=== PATIENT | female | born 1955 | race Caucasian/White ===

== ENCOUNTER 2022-02-21 20:12 | Inpatient (IN) ==
[2022-02-21] MEDS ORDERED: SODIUM CHLORIDE 0.9% 1000ML 500 ML IV ONE (20:38)
[2022-02-21] MEDS ORDERED: MoRPHine SULFATE 2 MG/ML CARP IV STA ×2 (20:43→21:29)
[2022-02-21] MEDS ORDERED: ONDANSETRON INJ 2 MG/ML 2 ML VIAL IV STA (20:43)
--- NOTE | 2022-02-21 20:43 | Emergency Department Note ---
History of Present Illness General Chief complaint: Fall Stated complaint: Fall, Alcohol Intoxication Time Seen by Provider: 02/21/22 20:31 Source: patient, EMS, RN notes reviewed and old records reviewed Mode of arrival: EMS Limitations: no limitations History of Present Illness Maximum Pain Intensity: 8 This patient 66-year-old female who comes in after falling around 6 PM. She said she had that she drank too much alcohol and said that she fell out about 2 or 3 steps. She hurts from her neck downward. She says it hurts when she moves denies any chest pain or shortness of breath. Denies that she has any loss of consciousness. She admits to drinking alcohol. She does drink frequently. Denies abdominal pain no focal numbness weakness she has visible swelling of the left ankle. Says she was drinking socially denies that she was trying to hurt herself or took any other ingestions. Is a diabetic but says her blood sugars have been running fine lately Home Medications Medication Instructions Recorded Confirmed Type ginkgo biloba leaf extract 60 mg 60 mg PO DAILY #60 tab 06/22/19 02/21/22 Rx tablet milk thistle 175 mg tablet 175 mg PO DAILY #60 tab 06/22/19 02/21/22 Rx multivitamin with minerals 1 tab PO DAILY #180 tab 06/22/19 02/21/22 Rx (Hair,Skin and Nails) lancets 33 gauge (OneTouch Delica #300 ea 06/28/19 02/21/22 Rx Lancets) blood [facility] 01/27/21 01/12/22 Rx Verio test strips) fluoxetine 20 mg tablet 20 mg PO BID #180 tab 09/01/21 02/21/22 Rx furosemide 20 mg tablet 20 mg PO DAILY PRN #90 tab 09/19/21 02/21/22 Rx glimepiride 4 mg tablet 8 mg PO DAILY #180 tab 11/10/21 02/21/22 Rx rosuvastatin 40 mg tablet 20 mg PO DAILY #90 tab 11/11/21 02/21/22 Rx semaglutide (Ozempic) 0.5 mg SQ WEEKLY #1.5 ml 11/18/21 02/21/22 Rx albuterol sulfate 90 mcg/actuation See Rx Instructions .ROUTE 12/24/21 02/21/22 Rx aerosol inhaler .COMPLEX #18 g amlodipine 5 mg tablet 5 mg PO DAILY #90 tab 12/31/21 02/21/22 Rx betamethasone dipropionate 0.05 % 1 applic TOPICAL BID PRN #45 g 01/12/22 02/21/22 Rx topical cream lisinopril 40 mg tablet 40 mg PO DAILY #180 tab 01/12/22 02/21/22 Rx metformin 1,000 mg tablet 1,000 mg PO BID #180 tab 01/12/22 02/21/22 Rx latanoprost 0.005 % eye drops 1 drp OPHTHALMIC (EYE) DAILY #2.5 01/15/22 2 Rx ml Allergies Allergy/AdvReac Type Severity Reaction Status Date / Time No Known Drug Allergies Allergy Verified 02/21/22 20:52 Past Med/Surg History Medical History (Updated 02/22/22 @ 02:44 by Alexi Perez MD) Anxiety and depression Arthritis Asthma COPD (chronic obstructive pulmonary disease) Diabetes Diverticulosis Glaucoma Hyperlipidemia Hypertension Surgical History History of appendectomy History of oophorectomy, unilateral unilateral right side Family History Mother Diabetes Kidney disease Kidney stones Hypertension Gallbladder disease Sister Seizures Denies family history of Ovarian cancer Prostate cancer Myocardial infarction Breast cancer Cancer Social History Smoking Status: Never smoker Second Hand Exposure: No; Hx Alcohol Use: Yes Alcohol type: beer Alcohol Intake Frequency: 4 or More x per/Week Alcohol Intake Frequency Comment: 2 beers per day Hx Substance Use: No Preferred Language: [place] Islander Communication Ability: Effective Visual Impairment: Limited Hearing Ability: Normal Ranger Aide Required: No Beliefs That Will Affect Care: None marital status: Current Living Situation: Spouse and Family Current Living Situation Comment: lives w/ spouse, daughter, 2 grandchildren, and son in law current occupational status: retired How many Children do You have: 2 Feels Safe at Home: Yes Childhood Exposure to Second-Hand Smoke: Yes caffeine: Yes during the past year weight has: remained stable Dental Care, Regularly: Yes Physical Activity Frequency: 1-2 Times per Week Seatbelt Use: always Sunscreen Use: Yes Review of Systems A total of 10 systems reviewed and were otherwise negative Physical Exam Vital Signs Vital Signs - 24 hr 02/21/22 20:21 02/21/22 20:53 02/21/22 22:02 Temperature 36.6 C Temperature Source Oral Pulse Rate 81 Pulse Rate [Finger] 78 Respiratory Rate 20 16 Blood Pressure 142/91 H Blood Pressure [Right Arm] 149/78 H Blood Pressure Mean 108 Blood Pressure Mean [Right Arm] 101 Pulse Oximetry 94 96 92 Oxygen Delivery Method Nasal Cannula Nasal Cannula Nasal Cannula Oxygen Flow Rate 2 2 2 Sepsis Recent Fever Within 48 Hours No Sepsis New/Unexplained Change in Mental Status No Sepsis Action Taken by Nursing No Action Required 02/22/22 00:00 Temperature Temperature Source Pulse Rate Pulse Rate [Finger] 83 Respiratory Rate 18 Blood Pressure Blood Pressure [Right Arm] 153/61 H Blood Pressure Mean Blood Pressure Mean [Right Arm] 91 Pulse Oximetry 95 Oxygen Delivery Method Nasal Cannula Oxygen Flow Rate 2 Sepsis Recent Fever Within 48 Hours Sepsis New/Unexplained Change in Mental Status Sepsis Action Taken by Nursing General: Well developed well nourished older female who is in a cervical collar and appears mildly intoxicated but answering questions appropriately in no acute distress, breathing comfortably on room air. Normal speech HEENT: Normal cephalic atraumatic. Pupils are equal round and reactive to light. Extraocular movements are intact. Oropharynx is pink with moist mucous membranes. No swelling of the mouth lips or tongue. Neck: Supple with a midline trachea. No meningeal signs or stiffness, no JVD or bruits. No Stridor. Chest: Clear to auscultation bilaterally. No wheezes or rhonchi. No increased work of breathing. Crepitus or subcutaneous air Heart: Regular rate and rhythm without murmurs or gallops. Abdomen: Soft nontender, nondistended without rebound guarding or rigidity. Extremities: No cyanosis clubbing or edema. No calf tenderness or assymetry. She does have some swelling left ankle and a small abrasion/laceration anteriorly. Spine/Back. Non tender to palpation. No CVA tenderness Skin: Good turgor without rashes. Neurologic exam: Cranial nerves two through 12 are intact. Motor and sensation are intact and symmetrical throughout. Course Administered Medications Discontinued Medications Sodium Chloride (Nss 1000ml) 500 mls @ 999 mls/hr IV .Q31M ONE Stop: 02/21/22 21:08 Last Infusion: 02/21/22 21:33 Dose: 0 mls/hr Documented by: [id number] Admin: 02/21/22 21:01 Dose: 999 mls/hr Documented by: [id number] Ioversol (Optiray 320 100ml) 95 ml IV ONCE ONE Stop: 02/21/22 22:20 Last Admin: 02/21/22 22:19 Dose: 95 ml Documented by: [id number] Morphine Sulfate (Morphine Sulfate 2 Mg/Ml Carp) 2 mg IV NOW STA Stop: 02/21/22 20:44 Last Admin: 02/21/22 21:01 Dose: 2 mg Documented by: [id number] Morphine Sulfate (Morphine Sulfate 2 Mg/Ml Carp) 2 mg IV NOW STA Stop: 02/21/22 21:30 Last Admin: 02/21/22 21:50 Dose: 2 mg Documented by: [id number] Morphine Sulfate (Morphine Sulfate 2 Mg/Ml Carp) 2 mg IV NOW STA Stop: 02/22/22 01:55 Last Admin: 02/22/22 01:58 Dose: 2 mg Documented by: [id number] Ondansetron HCl (Ondansetron Inj 2 Mg/Ml 2 Ml Vial) 4 mg IV NOW STA Stop: 02/21/22 20:44 Last Admin: 02/21/22 21:01 Dose: 4 mg Documented by: [id number] Potassium Chloride (Potassium Chloride Crtab 20 Meq Tabcr) 40 meq PO NOW STA Stop: 02/22/22 01:54 Last Admin: 02/22/22 01:58 Dose: 40 meq Documented by: [id number] Medical Decision Making Differential Diagnosis Traumatic injuries, spinal injuries, internal injuries, pneumothorax, alcohol intoxication, electrolyte or metabolic abnormality, orthopedic injuries, diabetic emergency/urgency Medical Records Attestation: I reviewed the patient's medical records. Home Medications Current Medication List: was personally reviewed by me Laboratory Data Attestation: I reviewed the patient's lab results. Result diagrams: 02/21/22 20:25 02/21/22 20:25 Lab Results 02/21/22 02/21/22 02/21/22 Range/Units 20:25 20:25 20:25 WBC 14.49 H (4.8-10.8) K/uL RBC 4.35 (4.2-5.4) M/uL Hgb 13.3 (12.0-16.0) g/dL Hct 38.9 (37-47) % MCV 89.4 (80-100) fL MCH 30.6 (25-34) pg MCHC 34.2 (32-36) g/dL RDW Std Deviation 48.9 H (36.4-46.3) fL RDW Coeff of Suraj 14.9 H (11.5-14.5) % Plt Count 314 (130-400) K/uL MPV 9.3 (7.4-10.4) fL Immature Gran % (Auto) 0.5 % Neut % (Auto) 66.6 % Lymph % (Auto) 26.8 % [place] % (Auto) 4.8 % Eos % (Auto) 1.2 % Baso % (Auto) 0.1 % Neut # (Auto) 9.63 H (1.4-6.5) K/uL Lymph # (Auto) 3.89 H (1.2-3.4) K/uL [place] # (Auto) 0.70 H (0.11-0.59) K/uL Eos # (Auto) 0.18 (0-0.5) K/uL Baso # (Auto) 0.02 (0-0.2) K/uL Immature Gran # (Auto) 0.07 H (0.00-0.02) K/uL PT 10.6 (9.0-12.0) Seconds INR 1.0 (0.9-1.1) APTT 22.8 (21.0-31.0) Seconds PTT Ratio 0.8 Sodium 129 L (136-145) mmol/L Potassium 3.2 L (3.5-5.1) mmol/L Chloride 90 L (98-107) mmol/L Carbon Dioxide 25 (21-32) mmol/L Anion Gap 14 H (3-11) BUN 6 (6-23) mg/dl Creatinine 0.46 L (0.6-1.2) mg/dl Est Cr Clr Drug Dosing Not Reportable Est GFR ( Amer) 118.5 ml/min Est GFR (Non-Af Amer) 102.2 ml/min BUN/Creatinine Ratio 13.0 (10-20) Glucose 79 (70-99(Fasting)) mg/dl POC Glucose (70-99) mg/dl Calcium 8.9 (8.5-10.1) mg/dl Total Bilirubin 0.5 (0.2-1.0) mg/dl AST 45 H (13-39) U/L ALT 34 (7-52) U/L Alkaline Phosphatase 63 (34-104) U/L Troponin I High Sens (0-14) pg/ml Total Protein 7.7 (6.0-8.3) gm/dl Albumin 4.8 (3.4-5.0) gm/dl Globulin 2.9 (2.5-4.0) gm/dl Albumin/Globulin Ratio 1.7 (0.9-2) TSH (0.300-4.500) uIu/ml Free T4 (0.61-1.60) ng/dl Ethyl Alcohol mg/dL (<10.0) mg/dl SARS-CoV-2, RNA, NAAT (NEGATIVE) 02/21/22 02/21/22 02/21/22 Range/Units 20:25 20:25 20:37 WBC (4.8-10.8) K/uL RBC (4.2-5.4) M/uL Hgb (12.0-16.0) g/dL Hct (37-47) % MCV (80-100) fL MCH (25-34) pg MCHC (32-36) g/dL RDW Std Deviation (36.4-46.3) fL RDW Coeff of Suraj (11.5-14.5) % Plt Count (130-400) K/uL MPV (7.4-10.4) fL Immature Gran % (Auto) % Neut % (Auto) % Lymph % (Auto) % [place] % (Auto) % Eos % (Auto) % Baso % (Auto) % Neut # (Auto) (1.4-6.5) K/uL Lymph # (Auto) (1.2-3.4) K/uL [place] # (Auto) (0.11-0.59) K/uL Eos # (Auto) (0-0.5) K/uL Baso # (Auto) (0-0.2) K/uL Immature Gran # (Auto) (0.00-0.02) K/uL PT (9.0-12.0) Seconds INR (0.9-1.1) APTT (21.0-31.0) Seconds PTT Ratio Sodium (136-145) mmol/L Potassium (3.5-5.1) mmol/L Chloride (98-107) mmol/L Carbon Dioxide (21-32) mmol/L Anion Gap (3-11) BUN (6-23) mg/dl Creatinine (0.6-1.2) mg/dl Est Cr Clr Drug Dosing Est GFR ( Amer) ml/min Est GFR (Non-Af Amer) ml/min BUN/Creatinine Ratio (10-20) Glucose (70-99(Fasting)) mg/dl POC Glucose (70-99) mg/dl Calcium (8.5-10.1) mg/dl Total Bilirubin (0.2-1.0) mg/dl AST (13-39) U/L ALT (7-52) U/L Alkaline Phosphatase (34-104) U/L Troponin I High Sens 7.9 (0-14) pg/ml Total Protein (6.0-8.3) gm/dl Albumin (3.4-5.0) gm/dl Globulin (2.5-4.0) gm/dl Albumin/Globulin Ratio (0.9-2) TSH 4.781 H (0.300-4.500) uIu/ml Free T4 1.14 (0.61-1.60) ng/dl Ethyl Alcohol mg/dL 232.2 H (<10.0) mg/dl SARS-CoV-2, RNA, NAAT (NEGATIVE) 02/21/22 02/21/22 Range/Units 20:42 21:10 WBC (4.8-10.8) K/uL RBC (4.2-5.4) M/uL Hgb (12.0-16.0) g/dL Hct (37-47) % MCV (80-100) fL MCH (25-34) pg MCHC (32-36) g/dL RDW Std Deviation (36.4-46.3) fL RDW Coeff of Suraj (11.5-14.5) % Plt Count (130-400) K/uL MPV (7.4-10.4) fL Immature Gran % (Auto) % Neut % (Auto) % Lymph % (Auto) % [place] % (Auto) % Eos % (Auto) % Baso % (Auto) % Neut # (Auto) (1.4-6.5) K/uL Lymph # (Auto) (1.2-3.4) K/uL [place] # (Auto) (0.11-0.59) K/uL Eos # (Auto) (0-0.5) K/uL Baso # (Auto) (0-0.2) K/uL Immature Gran # (Auto) (0.00-0.02) K/uL PT (9.0-12.0) Seconds INR (0.9-1.1) APTT (21.0-31.0) Seconds PTT Ratio Sodium (136-145) mmol/L Potassium (3.5-5.1) mmol/L Chloride (98-107) mmol/L Carbon Dioxide (21-32) mmol/L Anion Gap (3-11) BUN (6-23) mg/dl Creatinine (0.6-1.2) mg/dl Est Cr Clr Drug Dosing Est GFR ( Amer) ml/min Est GFR (Non-Af Amer) ml/min BUN/Creatinine Ratio (10-20) Glucose (70-99(Fasting)) mg/dl POC Glucose 94 (70-99) mg/dl Calcium (8.5-10.1) mg/dl Total Bilirubin (0.2-1.0) mg/dl AST (13-39) U/L ALT (7-52) U/L Alkaline Phosphatase (34-104) U/L Troponin I High Sens (0-14) pg/ml Total Protein (6.0-8.3) gm/dl Albumin (3.4-5.0) gm/dl Globulin (2.5-4.0) gm/dl Albumin/Globulin Ratio (0.9-2) TSH (0.300-4.500) uIu/ml Free T4 (0.61-1.60) ng/dl Ethyl Alcohol mg/dL (<10.0) mg/dl SARS-CoV-2, RNA, NAAT NEGATIVE (NEGATIVE) Imaging Data Attestation: I personally reviewed and interpreted this imaging study as follows: My Impression: Chest x-rayno acute infiltrate, failure, pneumothorax seen Left ankle x-ray no definite fracture or dislocation seen Radiologist's Impression: STAT Rad-[facility] trauma scans-no acute intracranial traumatic injuries, no cervical spine fractures. No intra-abdominal injuries. No chest injuries with exception of a mildly displaced sternal fracture. Normal aorta. No pericardial effusion no pneumothorax or pulmonary contusion. Please refer to report ECG Data Attestation: I personally reviewed and interpreted this ECG as follows: Indication: + weakness Rate (beats per minute): 82 ECG Intervals/blocks: + Normal QRS, + Normal QT and + Normal MT ECG [place]: + Normal ECG ST segments: + Nonspecific ST abnormalities ECG Findings: no PACs or no PVCs Comparison ECG Date: no prior available Additional Comments: EKG #2normal sinus rhythm at 71. No definite ischemic changes or ectopy, no significant change compared to 1. Nonspecific Segments are unchanged compared to #1. MDM Narrative This patient comes in as described above. She was placed in room B7. She had been drinking heavily and fell. She has multiple complaints. She has stable vital signs. IV access was established she was given morphine 2 mg IV and Zofran 4 mg IV and IV fluid bolus I ordered [facility] trauma scans and x-ray of the left ankle. EKG and blood testing was obtained she was reassessed frequently. Her chest x-ray did not show any pneumothorax. Her trauma scans do not show any definite abnormalities with exception of sternal fracture. EKG does not show any definite ischemic changes. I did a second EKG and there is no change compared to first. Initial high-sensitivity activity troponin was within normal limits which would go against any cardiac contusion or ischemia. She is doing well with exception of pain management she has received a couple doses of morphine. I do think that she needs to be admitted/observed. I discussed case with Dr. Clinton who will see her in the ED. She also asked that I discuss it with Dr. Bruner who is a surgeon he agrees that the patient could stay here as long as the EKG and troponin look okay. I also did talk to the telemetry radiologist about the sternal fracture and it does not appear to be significantly displaced. The patient is happy with this plan and will be admitted/observed for pain management Continuous cardiac monitoring: Orders placed in EMR for continuous cardiac monitoring. Upon my interpretation patient noted to be in normal sinus rhythm with a rate of 78 Impression & Plan Sternal fracture, Fall, Alcohol intoxication, Lab test negative for COVID-19 virus Discharge Plan Visit Data Chief Complaint: Fall Stated Complaint: Fall, Alcohol Intoxication ED Provider: Alexi Perez Discharge Problem: Sternal fracture, Fall, Alcohol intoxication, Lab test negative for COVID-19 virus Patient Disposition: Admitted As Inpatient Discharge Instructions Interventions: ED Discharge Assessment Last Done: 02/22/22 02:20 Discharge Problem: Sternal fracture Qualifiers: Encounter type: initial encounter Sternal location: unspecified Fracture type: closed Qualified Code(s): S22.20XA - Unspecified fracture of sternum, initial encounter for closed fracture Fall Qualifiers: Encounter type: initial encounter Qualified Code(s): W19.XXXA - Unspecified fall, initial encounter Alcohol intoxication Qualifiers: Complication of substance-induced condition: uncomplicated Qualified Code(s): F10.920 - Alcohol use, unspecified with intoxication, uncomplicated
[2022-02-21 20:49] LABS: Basophils # (auto) 0.02 K/uL (0-0.2); Basophils % (auto) 0.1 %; Eosinophils # (auto) 0.18 K/uL (0-0.5); Eosinophils % (auto) 1.2 %; Hematocrit (blood only) 38.9 % (37-47); Hemoglobin 13.3 g/dL (12.0-16.0); Immature Granulocytes # (auto) 0.07 K/uL (0.00-0.02); Immature Granulocytes % (auto) 0.5 %; Lymphocytes # (auto) 3.89 K/uL (1.2-3.4); Lymphocytes % (auto) 26.8 %; Mean Corpuscular Hemoglobin 30.6 pg (25-34); Mean Corpuscular Hgb Conc 34.2 g/dL (32-36); Mean Corpuscular Volume 89.4 fL (80-100); Mean Platelet Volume 9.3 fL (7.4-10.4); Monocytes % (auto) 4.8 %; Neutrophils # (auto) 9.63 K/uL (1.4-6.5); Neutrophils % (auto) 66.6 %; Platelet Count 314 K/uL (130-400); RDW Coefficient of Variation 14.9 % (11.5-14.5); RDW Standard Deviation 48.9 fL (36.4-46.3); Red Blood Count 4.35 M/uL (4.2-5.4); White Blood Count 14.49 K/uL (4.8-10.8)
[2022-02-21 20:55] LABS: Alanine Aminotransferase 34 U/L (7-52); Albumin Globulin Ratio 1.7 (0.9-2); Albumin Level 4.8 gm/dl (3.4-5.0); Alkaline Phosphatase 63 U/L (34-104); Anion Gap 14 (3-11); Aspartate Aminotransferase 45 U/L (13-39); Bilirubin,Total 0.5 mg/dl (0.2-1.0); Blood Urea Nitrogen 6 mg/dl (6-23); Calcium 8.9 mg/dl (8.5-10.1); Carbon Dioxide 25 mmol/L (21-32); Chloride 90 mmol/L (98-107); Est GFR (African American) 118.5 ml/min; Est GFR (Non-African American) 102.2 ml/min; Globulin 2.9 gm/dl (2.5-4.0); Glucose 79 mg/dl (70-99(Fasting)); Potassium 3.2 mmol/L (3.5-5.1); Sodium 129 mmol/L (136-145); Total Protein 7.7 gm/dl (6.0-8.3)
[2022-02-21 21:01] LABS: Partial Thromboplastin Ratio 0.8; Partial Thromboplastin Time 22.8 Seconds (21.0-31.0); Prothrombin Time 10.6 Seconds (9.0-12.0)
[2022-02-21 21:18] LABS: Thyroid Stimulating Hormone 4.781 uIu/ml (0.300-4.500)
[2022-02-21 21:50] LABS: T4 Free Thyroxine 1.14 ng/dl (0.61-1.60)
[2022-02-21] MEDS ORDERED: OPTIRAY 320 100ml IV ONE (22:19)
--- NOTE | 2022-02-22 01:12 | History & Physical Report ---
Date of Service February 22, 2022 Assessment & Plan (1) Sternal fracture: Plan: This is a 66-year-old female with a notable past medical history of type 2 diabetes, hypertension, hyperlipidemia, COPD, anxiety and depression who presented to [facility] following a fall in the setting of EtOH intoxication, subsequently found to have evidence of non-displaced sternal fracture on CT imaging. At time of admission, there is no evidence of PNX, aortic, or pericardial pathology. Sternal Fracture Sustained following a fall down 2-3 steps in the setting of alcohol intoxication CT chest stat rad: "Displaced sternal fracture with surrounding hyperdense hemorrhagic products. No well-defined hematoma." No evidence of pneumothorax, aortopathy, or pericardial pathology Initial troponin negative. ECG x2 without evidence of conduction/repolarization abnormalities Consult general surgery, appreciate expertise on need for repair/monitoring (ED provider spoke w/ on-call GS; monitor ECGs, troponin, no indication to transfer at present) Monitor troponin X 2 Check CXR, ECG in a.m. If any evidence and troponin bump or ECG changes, obtain TTE Monitor on telemetry, pain control as below (2) Fall: Plan: Fall In the setting of appreciable alcohol intoxication history No evidence of loss of consciousness, secondary factors (based on history) that may have precipitated fall otherwise Imaging obtained in the ED did demonstrate: sternal fracture, L rib injuries, degenerative changes in neck w/o FX Topical pain control with lidocaine patches and heat pads Patient noted to be somnolent following morphine administration for pain in ED; also in setting of appreciable [EtOH], will hold off from as needed opiate analgesics for now but can re-add as they kaba off --> Initiate scheduled Tylenol 650 q6h beginning at 0600 following further IVF --> Will give one-time dose of Toradol to aid with diffuse pain now; cautious use in setting of sternal fracture w/ radiologic evidence of hemorrhage above Upon arrival to the floor, patient noted to have right shoulder droop; will obtain dedicated films of the right shoulder to evaluate for pathology (3) Alcohol intoxication: Plan: EtOH intoxication On arrival, patient noted to have serum alcohol level of approximately 240; she endorsed drinking over 10 beers today On a regular basis, patient reports drinking approximately 4 beers/day; will require further history when less somnolent tomorrow Patient denies any history of alcohol withdrawal; however, will initiate AWSS checks for now Scheduled thiamine, folate Alcohol counseling will be required, especially in the setting of this fall (4) COPD (chronic obstructive pulmonary disease): Plan: COPD History noted in PCP notes. Appears well controlled. Albuterol as needed. (5) Anxiety and depression: Plan: Continue fluoxetine (6) Diabetes: Plan: T2DM A1c reported at 8% in December 2021 Hold home medications. Initiate sliding scale 1:30 with carb correction 1:15 Continue ACHS glucose checks (7) Hyperlipidemia: Plan: Noted. Continue rosuvastatin (8) Hypertension: Plan: Noted. Continue lisinopril and amlodipine (9) Hyponatremia: Plan: Hyponatremia Noted in the setting of alcohol use and dry appearance on exam, labs Suspect this is likely hypovolemic in nature in setting of heavy EtOH use today Status post 500 cc bolus in ED. Continue NSS at 100 cc an hour Recheck BMP in AM. If not correcting, can consider adding urine sodium, creatinine (10) Hypokalemia: Plan: Hypokalemia Replete with KCl 40mEq now. Scheduled twice daily, can discontinue when appropriate. Check Mg, replete prn Plan: Code: Full code -- given somnolence following analgesic administration and EtOH level, unable to have extensive conversation regarding code status. As this improves through the morning, clarification will be required. Dispo: MS/T Diet: Cardiac PPX: SCDs, hold from anticoagulation at this time in setting of fracture, fall History of Present Illness Primary Care Provider: Tamera Marques DO This is a 66-year-old female with a notable past medical history of type 2 diabetes, hypertension, hyperlipidemia, COPD, anxiety and depression who presented to [facility] following a fall. Patient says that she was at the bar with her daughter for most of the day, and around 6 PM, she did suffer a fall down 2-3 steps. To the emergency provider, she did endorse that she drank too much. She did not recall hitting her head. She did not lose consciousness. She was transported to the ER due to significant pain. In the ER, patient reported diffuse pain from her neck downward. Primary source of the pain involves her right shoulder and back. She denied any head or chest pain. Endorses chronic shortness of breath which has not worsened. She denies any belly pain. Denies any groin or pelvic pain. She denies any pain in her legs. She denies any sensation distortions in her upper or lower extremities. She denies any double vision. Socially, patient reports living with her , daughter, and grandchildren. She reports feeling happy and safe at home. She denies any recent changes in medications or taking additional medications today. Regarding her alcohol use, she does say that she drinks approximately 4 beers a day; she denies any use of liquor or wine products. She denies any use of tobacco products. She denies any use of recreational drugs. In the ED, patient was found to be hemodynamically stable. Labs were significant for mild leukocytosis to 15, hyponatremia 129, hypokalemia 3.2, hypochloremia 90, TSH 4.8, serum alcohol 232. Head CT and cervical spine CT negative for acute pathology. Chest CT demonstrated displaced sternal fracture with surrounding hemorrhage without evidence of aortic, pericardial, or pneumatic pathology. Ankle x-ray did not show obvious evidence of fracture, but is awaiting read. ECG without overt evidence of repolarization or conduction abnormalities. Admission hs-troponin NORMAL at 7.9. She was given a total of 1L NSS. Morphine and Zofran were also given. ED provider spoke w/ on-call surgeon to review case. Allergies Allergy/AdvReac Type Severity Reaction Status Date / Time No Known Drug Allergies Allergy Verified 02/21/22 20:52 Home Medications Medication Instructions Recorded Confirmed Type ginkgo biloba leaf extract 60 mg 60 mg PO DAILY #60 tab 06/22/19 02/21/22 Rx tablet milk thistle 175 mg tablet 175 mg PO DAILY #60 tab 06/22/19 02/21/22 Rx multivitamin with minerals 1 tab PO DAILY #180 tab 06/22/19 02/21/22 Rx (Hair,Skin and Nails) lancets 33 gauge (PellePharmTouch Delica #300 ea 06/28/19 02/21/22 Rx Lancets) blood sugar diagnostic (Pelle[employer]Touch #300 ea 01/27/21 01/12/22 Rx Verio test strips) fluoxetine 20 mg tablet 20 mg PO BID #180 tab 09/01/21 02/21/22 Rx furosemide 20 mg tablet 20 mg PO DAILY PRN #90 tab 09/19/21 02/21/22 Rx glimepiride 4 mg tablet 8 mg PO DAILY #180 tab 11/10/21 02/21/22 Rx rosuvastatin 40 mg tablet 20 mg PO DAILY #90 tab 11/11/21 02/21/22 Rx semaglutide (Ozempic) 0.5 mg SQ WEEKLY #1.5 ml 11/18/21 02/21/22 Rx albuterol sulfate 90 mcg/actuation See Rx Instructions .ROUTE 12/24/21 02/21/22 Rx aerosol inhaler .COMPLEX #18 g amlodipine 5 mg tablet 5 mg PO DAILY #90 tab 12/31/21 02/21/22 Rx betamethasone dipropionate 0.05 % 1 applic TOPICAL BID PRN #45 g 01/12/22 Rx topical cream lisinopril 40 mg tablet 40 mg PO DAILY #180 tab 01/12/22 02/21/22 Rx metformin 1,000 mg tablet 1,000 mg PO BID #180 tab 01/12/22 02/21/22 Rx latanoprost 0.005 % eye drops 1 drp OPHTHALMIC (EYE) DAILY #2.5 01/15/22 02/21/22 Rx ml Past Med/Surg History Medical History (Updated 02/22/22 @ 02:44 by Alexi Perez MD) Anxiety and depression Arthritis Asthma COPD (chronic obstructive pulmonary disease) Diabetes Diverticulosis Glaucoma Hyperlipidemia Hypertension Surgical History History of appendectomy History of oophorectomy, unilateral unilateral right side Family History Mother Diabetes Kidney disease Kidney stones Hypertension Gallbladder disease Sister Seizures Denies family history of Ovarian cancer Prostate cancer Myocardial infarction Breast cancer Cancer Social History Smoking Status: Never smoker Second Hand Exposure: No; Hx Alcohol Use: Yes Alcohol type: beer Alcohol Intake Frequency: 4 or More x per/Week Alcohol Intake Frequency Comment: 2 beers per day Hx Substance Use: No Preferred Language: Hebrew Communication Ability: Effective Visual Impairment: Limited Hearing Ability: Normal Eligibility Worker Required: No Beliefs That Will Affect Care: None marital status: Current Living Situation: Spouse Current Living Situation Comment: lives w/ spouse, daughter, 2 grandchildren, and son in law current occupational status: retired How many Children do You have: 2 Feels Safe at Home: Yes Childhood Exposure to Second-Hand Smoke: Yes caffeine: Yes during the past year weight has: remained stable Dental Care, Regularly: Yes Physical Activity Frequency: 1-2 Times per Week Seatbelt Use: always Sunscreen Use: Yes Assistive Devices: None Review of Systems Review of Systems: as per HPI Physical Exam Physical Exam: General: 66-year old somnolent female who is alert, oriented, and appears in moderate distress secondary to diffuse pain. HEENT: NCAT. No JVD. - Eyes - Sclera are white, anicteric, and without injection. PERRL. - Mouth - MMM with no tonsillar edema or exudates. R hemitongue with contusion. Cardiac: Normal rate and regular rhythm; S1 and S2 present with holosystolic grade 1/6 murmur best heard at LUSB, LLSB, apex. No diastolic murmurs. Pulmonary: Easy respiratory effort with symmetric expansion of the chest. No use of accessory muscles. Lungs were clear to auscultation bilaterally with no crackles or wheezes. Abdominal: Normoactive bowel sounds. Abdomen was soft, nondistended, and non- tender to palpation. Extremities: Upper and lower extremities are warm and well perfused. MSK/Back: Palpation along the spine does reveal TTP along the cervicothoracic junction. No step-offs. Palpation along the pelvis does not reveal TTP. UE, LE strength 5/5. LE strength 5/5. Sensation in UE, LE grossly in-tact to light touch. Neuro: - Cranial Nerves: II-XII grossly intact. - Motor: UE - Finger, wrist, elbow, and shoulder strength is 5/5 bilaterally. LE - Hip, knee, and ankle strength is 5/5 bilaterally. - Sensation: UE and LE sensation to light touch is grossly intact bilaterally. Results & Data Results & Data ([facility]) Vital Signs (Past 12 Hours) Vital Signs Temp Pulse Pulse Resp BP BP Pulse Ox 02/22/22 00:00 83 18 153/61 H 95 02/21/22 22:02 78 16 149/78 H 92 02/21/22 20:53 96 02/21/22 20:21 36.6 C 81 20 142/91 H 94 Supervising Physician Co-Signing Physician Notes Patient seen and examined, chart reviewed, case discussed with Dr. Flor and I agree with the assessment and plan as above. In brief, patient is a 66yo female presenting after fall down the stairs. Patient with displaced sternal fracture. Remainder of trauma scans negative for internal injury. EKG with NSR, no arrhythmia. Troponin x 1 negative. No concern for pulmonary/cardiac contusion. Patient complaining of full body pain - mostly right arm, left ankle at this time. On exam she is uncomfortable but in NAD, sitting in chair at bedside. Assisted her to the bed without difficulty, although she is quite uncomfortable Skin - bruise left ordonez, small cut left ankle Bruising on tongue, EOMI, No oral/pharyngeal swelling, facial bones stable, no Cortez's sign or Raccoon eyes +cervical spine tenderness as well as tenderness of the trapezius and arm +S1/S2, regular Lungs CTA Abd +BS, soft, NT/ND Ext - no edema Labs and images reviewed Assessment/Plan -Pain control -PT/OT Repeat EKG, troponin Remainder as above Resident Activity Tracking Resident Involvement: Resident Care Provided Care Provided: Adult Hospital Medicine
[2022-02-22 01:48] LABS: Appearance Urine Clear (Clear); Bacteria Urine Automated Negative (Negative); Bilirubin Urine Negative (Negative); Blood Urine 2+ (Negative); Cast Urine Automated 0 /lpf (0-5); Color Urine Yellow; Epithelial Cell Urine Auto 0-5 /lpf (0-5); Glucose Urine UA Negative (Negative); Ketones Urine 1+ (Negative); Leukocyte Esterase Urine Negative (Negative); Nitrite Urine Negative (Negative); Protein Urine Negative (Negative); RBC Urine Automated 0-4 /hpf (0-4); Specific Gravity Urine 1.032 (1.000-1.030); Urobilinogen Urine Negative (Negative)
[2022-02-22] MEDS ORDERED: POTASSIUM CHLORIDE CRTAB 20 MEQ TABCR PO STA (01:53)
[2022-02-22] MEDS ORDERED: MoRPHine SULFATE 2 MG/ML CARP IV STA (01:54)
--- NOTE | 2022-02-22 01:59 | Billing Data ---
Date of Service February 22, 2022 Coding Level of Care Code 80091 Initial Inpt Care Lvl 3
[2022-02-22] MEDS ORDERED: KETOROLAC TROMETHAMINE 10 MG TABLET PO SCH (02:00)
[2022-02-22] MEDS ORDERED: KETOROLAC TROMETHAMINE 10 MG TABLET PO STA (02:00)
[2022-02-22] MEDS ORDERED: ALBUTEROL HFA 8 GM INHALER INH PRN (02:18)
[2022-02-22] MEDS ORDERED: GLUCOSE 10 TABS/TUBE PO PRN (02:18)
[2022-02-22] MEDS ORDERED: GLUCAGON FOR INJ 1 MG VIAL SQ PRN (02:18)
[2022-02-22] MEDS ORDERED: DEXTROSE 50% 50 ML SYRINGE IV PRN (02:18)
[2022-02-22] MEDS ORDERED: GLUCOSE 40% GEL 15 GM TUBE PO PRN (02:18)
[2022-02-22] MEDS ORDERED: CARBOHYDRATES FOR HYPOGLYCEMIA PO PRN (02:18)
[2022-02-22] MEDS ORDERED: SODIUM CHLORIDE 0.9% 1000ML 1,000 ML IV SCH (02:18)
[2022-02-22] MEDS ORDERED: FOLIC ACID 1 MG in SYRINGE 9.8 ML IV ONE (02:45)
[2022-02-22] MEDS ORDERED: FLUOCINONIDE 0.05% CR 15 GM TUBE EXT PRN (02:51)
[2022-02-22] MEDS: ACETAMINOPHEN 325 MG TAB PO SCH ×3 (03:18→17:58)
[2022-02-22 03:41] LABS: Basophils # (auto) 0.01 K/uL (0-0.2); Basophils % (auto) 0.1 %; Hematocrit (blood only) 36.8 % (37-47); Hemoglobin 12.4 g/dL (12.0-16.0); Immature Granulocytes # (auto) 0.04 K/uL (0.00-0.02); Immature Granulocytes % (auto) 0.3 %; Lymphocytes # (auto) 1.48 K/uL (1.2-3.4); Mean Corpuscular Hgb Conc 33.7 g/dL (32-36); Mean Corpuscular Volume 89.1 fL (80-100); Mean Platelet Volume 9.4 fL (7.4-10.4); Monocytes # (auto) 0.68 K/uL (0.11-0.59); Monocytes % (auto) 5.1 %; Neutrophils # (auto) 11.23 K/uL (1.4-6.5); Neutrophils % (auto) 83.5 %; Platelet Count 289 K/uL (130-400); RDW Coefficient of Variation 14.7 % (11.5-14.5); RDW Standard Deviation 48.2 fL (36.4-46.3); Red Blood Count 4.13 M/uL (4.2-5.4); White Blood Count 13.44 K/uL (4.8-10.8)
[2022-02-22 03:47] LABS: Albumin Globulin Ratio 1.7 (0.9-2); Albumin Level 4.4 gm/dl (3.4-5.0); BUN Creatinine Ratio 11.1 (10-20); Bilirubin,Total 0.7 mg/dl (0.2-1.0); Creatinine Clr Calc Pharmacy 138.6 ml/min; Est GFR (African American) 119.3 ml/min; Globulin 2.6 gm/dl (2.5-4.0); Potassium 3.8 mmol/L (3.5-5.1)
[2022-02-22 03:49] LABS: Troponin I High Sensitivity 7.6 pg/ml (0-14)
--- NOTE | 2022-02-22 07:13 | XRay Report ---
RIGHT SHOULDER 3 VIEWS HISTORY: R shoulder pain, numbness COMPARISON: None. FINDINGS: There is no fracture or dislocation. Small linear calcification at the expected location of the distal supraspinatus tendon consistent with a calcific tendinitis. The right clavicle is intact. Moderate AC joint arthrosis. There are mild degenerative changes at the glenohumeral joint. No radio paque foreign bodies. IMPRESSION: 1. No fracture or dislocation within the right shoulder. 2. Degenerative changes as described above. ACT 112: Negative or not required by law. Electronically signed by: Raj Headley M.D. 02/22/2022 7:11 AM
[2022-02-22] MEDS ORDERED: CEROVITE ADV FORMULA TAB PO SCH (07:30)
--- NOTE | 2022-02-22 07:41 | CT Scan Report ---
HEAD CT NONCONTRAST CT DOSE: HISTORY: fall TECHNIQUE: Multiaxial CT images of the head were performed without the use of intravenous contrast. A utomated exposure control was utilized for this study. A dose lowering technique was utilized adheri ng to the principles of ALARA. Comparison: None. Findings: The paranasal sinuses and mastoid air cells are clear. The calvarium and skull base are int act. The ventricles and sulci are within normal limits. There is no mass, hematoma, midline shift, or acute infarct. Posterior scalp swelling. Impression: No acute intracranial abnormality. ACT 112: Negative or not required by law. Electronically signed by: Raj Headley M.D. 02/22/2022 7:39 AM
[2022-02-22] MEDS ORDERED: POTASSIUM CHLORIDE 20 MEQ/15 ML UDC PO SCH (08:00)
--- NOTE | 2022-02-22 08:01 | CT Scan Report ---
CERVICAL SPINE CT CT DOSE: HISTORY: fall TECHNIQUE: Multiaxial CT images of the cervical spine were performed and reformatted in the sagittal and coronal plane without the use of contrast. A dose lowering technique was utilized adhering to e principles of ALARA. COMPARISON: None. FINDINGS: There are bilateral C7 pedicle fractures which extend into the right C7 facet. Mild anterio r wedging at the superior endplate of T1 which may represent an associated compression fracture. Prev ertebral soft tissues are intact. There is soft tissue edema within the left and posterior neck with probable small soft tissue hematomas. There is abnormal density surrounding the C1-C4 thecal sac whic h measures up to 5 mm in thickness resulting in central canal narrowing. This is concerning for an ep idural hematoma. Moderate degenerative changes from C5 through C7. IMPRESSION: 1. Bilateral C7 pedicle fracture which extends into the right C7 facet. This is consistent with an un stable fracture. 2. Abnormal density surrounding the C1-C4 thecal sac which measures up to 5 mm in thickness resulting in central canal narrowing at these levels. This is concerning for an epidural hematoma. Follow-up M MT is recommended for further evaluation. 3. Probable mild superior endplate compression fracture at T1. 4. These findings were discussed with Dr. Mcneal at 8:09 AM on 02/22/2022. ACT 112: Negative or not required by law. Electronically signed by: Raj Headley M.D. 02/22/2022 8:10 AM
--- NOTE | 2022-02-22 08:08 | XRay Report ---
XR chest 1V portable CLINICAL HISTORY: blunt force trauma to chest, cardiopulm eval COMPARISON STUDY: Chest radiograph and chest CT February 21, 2022. FINDINGS: There is no pneumothorax. Blunting of the left costophrenic angle is noted. Mild cardiomega ly is noted. No evidence for pulmonary edema. Multiple left-sided rib fractures are present. IMPRESSION: 1. No pneumothorax. 2. Cardiomegaly without evidence for pulmonary edema. 3. Minimal left basilar opacity which likely reflects atelectasis. Possible trace left pleural effusi on. ACT 112: Negative or not required by law. Electronically signed by: Yonny Brown M.D. 02/22/2022 8:05 AM
--- NOTE | 2022-02-22 08:29 | CT Scan Report ---
CHEST CT WITH INTRAVENOUS CONTRAST, ABDOMEN AND PELVIS CT WITH IV CONTRAST CT DOSE: 3957.79 mGy.cm HISTORY: Left-sided chest pain and abdominal pain. fall TECHNIQUE: Multiaxial CT images of the chest, abdomen and pelvis were performed following the use of intravenous contrast. A dose lowering technique was utilized adhering to the principles of ALARA. COMPARISON STUDY: None. FINDINGS: Chest CT: Bilateral C7 pedicle fractures are again noted. There are multiple old, healed bilateral ri b fractures. There is an acute nondisplaced right posterior fourth rib fracture. Nondisplaced right T 5 transverse process fracture. Nondisplaced left T3 and T4 transverse process fractures. Mild superio r endplate compression fracture at T1. Slightly displaced proximal sternal fracture with a small amou nt of surrounding hematoma. This extends to the sternomanubrial joint. Soft tissue tissue edema withi n the upper back and along the left lower neck with probable small soft tissue contusion/hemorrhage. Mild paravertebral edema/hemorrhage within the upper thoracic spine. Small amount of hemorrhage surro unding the right posterior fourth rib fracture. No pleural or pericardial effusions. The heart is mil dly enlarged. Calcified plaque within the normal caliber thoracic aorta. Normal esophagus. The main p ulmonary arteries are patent. A few prominent mediastinal and bilateral hilar lymph nodes. No pneumot horax. The central airways are patent. Mild interlobular septal thickening consistent with pulmonary edema. Mild dependent changes seen within the lung bases posteriorly. A few scattered subcentimeter n odular densities within the upper lung zones are indeterminate but may be secondary to the pulmonary edema. Dominant subcentimeter nodule within the left upper lobe measures 6 mm on image 78. Abdomen/pelvis CT: No pneumoperitoneum. No pneumatosis. No acute fractures identified. There are old, healed bilateral rib fractures identified. Moderate size fat-containing umbilical hernia. Mildly dis tended and fluid-filled stomach. However, no evidence for bowel obstruction. There are few distal ile al diverticula and a few colonic diverticula. No evidence for acute diverticulitis. No bowel wall thi ckening. No retroperitoneal hematoma. The liver, gallbladder, pancreas, spleen, and kidneys are withi n normal limits. No hydronephrosis. Mild bilateral periadrenal and perinephric edema. This is nonspec ific but may be chronic. The adrenal glands are normal in size. No retroperitoneal lymphadenopathy. N ormal caliber abdominal aorta. The bladder, uterus, bilateral adnexa are within normal limits. No pel julio césar free fluid. IMPRESSION: 1. Bilateral C7 pedicle fractures again noted. 2. Mild acute superior endplate compression fracture at T1. 3. Upper thoracic spine transverse process fractures as described above. 4. Nondisplaced right posterior fourth rib fracture. No pneumothorax. 5. Sternal fracture. 6. Mild interstitial pulmonary edema. 7. A few subcentimeter nodules within the upper lung zones which may be due to the pulmonary edema. D ominant nodule within the left upper lobe measures 6 mm. Follow-up chest CT in 6 months is recommende d to ensure stability/resolution. 8. No acute traumatic process within the abdomen or pelvis. ACT 112: Negative or not required by law. Electronically signed by: Raj Headley M.D. 02/22/2022 8:27 AM
--- NOTE | 2022-02-22 08:31 | XRay Report ---
XR ankle LT min 3V routine CLINICAL HISTORY: fall COMPARISON STUDY: None. FINDINGS: No acute fracture or dislocation within the left ankle. Mild mid pretibial soft tissue swel ling. Plantar and posterior calcaneal spurs are noted. There is mild anterior soft tissue swelling wi thin the ankle. The ankle mortise is intact. IMPRESSION: No acute fracture or dislocation within the left ankle. ACT 112: Negative or not required by law. Electronically signed by: Raj Headley M.D. 02/22/2022 8:30 AM
--- NOTE | 2022-02-22 08:32 | XRay Report ---
XR chest 1V portable HISTORY: weakness COMPARISON: None. FINDINGS: No pneumothorax or no pleural effusions. The heart is borderline enlarged. There is diffuse interstitial/vascular thickening suggestive of mild pulmonary edema. No focal lung consolidations id entified. There are old, healed bilateral rib fractures. IMPRESSION: Mild interstitial pulmonary edema. ACT 112: Negative or not required by law. Electronically signed by: Raj Headley M.D. 02/22/2022 8:31 AM
[2022-02-22] MEDS ORDERED: THIAMINE HCL 100 MG in SYRINGE 9 ML IV SCH (09:00)
[2022-02-22] MEDS ORDERED: amLODIPine BESYLATE 5 MG TAB PO SCH (09:00)
[2022-02-22] MEDS ORDERED: LIDOCAINE 5% 1 PATCH TD SCH ×2 (09:00)
[2022-02-22] MEDS ORDERED: LATANOPROST 0.005% OP SOLN 2.5 ML BTL OP SCH (09:00)
[2022-02-22] MEDS ORDERED: FLUoxetine HCL 20 MG CAP PO SCH (09:00)
[2022-02-22] MEDS ORDERED: ROSUVASTATIN CALCIUM 20 MG TAB PO SCH (09:00)
[2022-02-22] MEDS ORDERED: lisinopril 40 MG TAB PO SCH (09:00)
[2022-02-22] MEDS: INSULIN ASPART PER UNIT SC SCH ×3 (09:06→17:15)
[2022-02-22] MEDS ORDERED: NSS + 20MEQ KCL 20 MEQ/1,000 ML BAG IV SCH (10:00)
--- NOTE | 2022-02-22 11:31 | Magnetic Resonance Report ---
MRI OF THE CERVICAL SPINE WITHOUT CONTRAST CLINICAL HISTORY: Neck pain following fall. Evaluate for epidural hematoma. COMPARISON: Cervical spine CT February 21, 2022. TECHNIQUE: Utilizing a 1.5 Ricarda magnet and dedicated coil, multiplanar, multiecho imaging of the ce rvical spine was performed without IV contrast. FINDINGS: This study is mildly compromised by motion artifact. Note is made of 2 mm of anterolisthesi s of C7 on T1 due to bilateral C7 pedicle fractures better depicted on CT on February 21, 2022. Otherwis e, alignment of the cervical spine is anatomic. Note is made of an acute mildly displaced fracture of the anterior aspect of the superior endplate of T1. There may be associated tear of the anterior rosie gitudinal ligament. There is associated marrow edema. No additional acute cervical spine fractures ar e identified. Note is made of extensive prevertebral edema at the C2-C4 levels. There is also extensi ve posterior paraspinal soft tissue edema. There is evidence for posterior ligamentous tear at the C6 -C7 level, shown best on sagittal image 9 of 16. Cervical cord signal is suboptimally assessed on thi s exam given motion artifact but within normal limits. There is no definite cord edema. Note is made of abnormal intracanalicular fluid within the cervical canal which measures 3 mm in thickness. This c orresponds to the finding on CT. This is most evident at the left C2-C3 level. This suggests an epidu ral hematoma. This hematoma superimposed upon mild degenerative changes results in overall moderate c entral canal narrowing with mass effect upon the thecal sac. IMPRESSION: 1. Abnormal intracanalicular fluid throughout the cervical canal most pronounced at the left C2-C3 le felecia, measuring 3 mm in thickness. This corresponds to the finding on cervical spine CT of February 21 and represents an intracanalicular hematoma, likely epidural. This hematoma, superimposed upon mi ld degenerative changes, results in moderate central canal stenosis throughout the cervical spine wit h mass effect upon the thecal sac. No cord signal abnormality. Spine surgical consultation is recomme nded. 2. Bilateral C7 pedicle fractures with associated mild anterolisthesis of C7 on T1. These fractures a re unstable. 3. Acute mildly displaced fracture of the anterior aspect of the superior endplate of T1 with possibl e associated tear of the anterior longitudinal ligament. Extensive prevertebral edema, greatest at th e C2-C4 levels. 4. Evidence for posterior ligamentous tear at the C6-C7 level with extensive posterior paraspinal sof t tissue edema. ACT 112: Negative or not required by law. Electronically signed by: Yonny Brown M.D. 02/22/2022 11:29 AM
--- NOTE | 2022-02-22 11:51 | Electrocardiogram Report ---
Test Reason : Blood Pressure : / mmHG Vent. Rate : 075 BPM Atrial Rate : 075 BPM P-R Int : 180 ms QRS Dur : 086 ms QT Int : 432 ms P-R-T Axes : 072 069 074 degrees QTc Int : 482 ms Normal sinus rhythm Normal ECG No previous ECGs available Confirmed by Rajesh Ferrari ([id number]) on 02/22/2022 11:51:07 AM Referred By: REFERRED SELF Confirmed By:Rajesh Ferrari
[2022-02-22] MEDS: dexAMETHasone 4 MG in SYRINGE 0 ML IV SCH ×2 (11:59→18:06)
--- NOTE | 2022-02-22 11:59 | Electrocardiogram Report ---
Test Reason : Blood Pressure : / mmHG Vent. Rate : 082 BPM Atrial Rate : 082 BPM P-R Int : 174 ms QRS Dur : 080 ms QT Int : 414 ms P-R-T Axes : 105 070 073 degrees QTc Int : 483 ms Normal sinus rhythm Low voltage QRS Borderline ECG When compared with ECG of 21-FEB-2022 21:10, (unconfirmed) No significant change was found Confirmed by Rajesh Ferrari ([id number]) on 02/22/2022 11:58:52 AM Referred By: REFERRED SELF Confirmed By:Rajesh Ferrari
--- NOTE | 2022-02-22 12:05 | Electrocardiogram Report ---
Test Reason : Blood Pressure : / mmHG Vent. Rate : 085 BPM Atrial Rate : 085 BPM P-R Int : 154 ms QRS Dur : 078 ms QT Int : 410 ms P-R-T Axes : 054 065 070 degrees QTc Int : 487 ms Normal sinus rhythm Low voltage QRS Borderline ECG When compared with ECG of 22-FEB-2022 01:04, (unconfirmed) No significant change was found Confirmed by Rajesh Ferrari ([id number]) on 02/22/2022 12:04:56 PM Referred By: REFERRED SELF Confirmed By:Rajesh Ferrari
[2022-02-22] MEDS ORDERED: MoRPHine SULFATE 2 MG/ML CARP IV PRN (12:36)
--- NOTE | 2022-02-22 12:42 | Discharge Summary ---
Date of Service February 22, 2022 Admission HPI Per Admitting Provider This is a 66-year-old female with a notable past medical history of type 2 diabetes, hypertension, hyperlipidemia, COPD, anxiety and depression who presented to [facility] following a fall. Patient says that she was at the bar with her daughter for most of the day, and around 6 PM, she did suffer a fall down 2-3 steps. To the emergency provider, she did endorse that she drank too much. She did not recall hitting her head. She did not lose consciousness. She was transported to the ER due to significant pain. In the ER, patient reported diffuse pain from her neck downward. Primary source of the pain involves her right shoulder and back. She denied any head or chest pain. Endorses chronic shortness of breath which has not worsened. She denies any belly pain. Denies any groin or pelvic pain. She denies any pain in her legs. She denies any sensation distortions in her upper or lower extremities. She denies any double vision. Socially, patient reports living with her , daughter, and grandchildren. She reports feeling happy and safe at home. She denies any recent changes in medications or taking additional medications today. Regarding her alcohol use, she does say that she drinks approximately 4 beers a day; she denies any use of liquor or wine products. She denies any use of tobacco products. She denies any use of recreational drugs. In the ED, patient was found to be hemodynamically stable. Labs were significant for mild leukocytosis to 15, hyponatremia 129, hypokalemia 3.2, hypochloremia 90, TSH 4.8, serum alcohol 232. Head CT and cervical spine CT negative for acute pathology. Chest CT demonstrated displaced sternal fracture with surrounding hemorrhage without evidence of aortic, pericardial, or pneumatic pathology. Ankle x-ray did not show obvious evidence of fracture, but is awaiting read. ECG without overt evidence of repolarization or conduction abnormalities. Admission hs-troponin NORMAL at 7.9. She was given a total of 1L NSS. Morphine and Zofran were also given. ED provider spoke w/ on-call surgeon to review case.Allergies Principal Diagnosis 1. Abnormal intracanalicular fluid throughout the cervical canal most pronounced at the left C2-C3 level, represents an intracanalicular hematoma, likely epidural Resulted in moderate central canal stenosis throughout the cervical spine with mass effect upon the thecal sac. No cord signal abnormality 2. Bilateral C7 pedicle fractures with associated mild anterolisthesis of C7 on T1. These fractures are unstable. 3. Acute mildly displaced fracture of the anterior aspect of the superior endplate of T1 with possible associated tear of the anterior longitudinal ligament. Extensive prevertebral edema, greatest at the C2-C4 levels. 4. Evidence for posterior ligamentous tear at the C6-C7 level with extensive posterior paraspinal soft tissue edema. 5.Alcohol intoxication Discharge Exam General: Alert oriented x3, well-nourished Neck: No lymphadenopathy, supple Respiratory: Lungs are clear to auscultation no chest abnormality Cardiovascular: Regular rate and rhythm no murmur no gallop vegetation Abdomen: Soft bowel sounds active Extremities: No edema no tenderness Skin: No jaundice no rash Neurology: Alert oriented x3 no acute distress moves all extremities, Tingling and numbness in the territory of Ulnar nerve Including the fifth and Lateral half of the Fourth Digit Psychiatry mood and affect appropriate Discharge Data Allergies Allergy/AdvReac Type Severity Reaction Status Date / Time No Known Drug Allergies Allergy Verified 02/21/22 20:52 Consultations 02/22/22 00:59 ED Decision to Admit Stat 02/22/22 01:13 Consult General Surgery Routine Ordered Studies 02/21/22 20:38 CT abd pelvis IV con only Urgent CT cervical spine wo con Urgent CT chest diagnostic w con Urgent CT head/brain wo con Urgent 02/22/22 08:52 MR cervical spine wo con Stat Hospital Course (1) Sternal fracture: This is a 66-year-old female with a notable past medical history of type 2 diabetes, hypertension, hyperlipidemia, COPD, anxiety and depression who presented to [facility] following a fall in the setting of EtOH intoxication, subsequently found to have evidence of non-displaced sternal fracture on CT imaging. At time of admission, there is no evidence of PNX, aortic, or pericardial pathology.However CT of cervical spine showed C7 unstable fracture with superimposed hematoma and moderate stenosis of cervical canal but no evidence of cord compression Sternal Fracture Sustained following a fall down 2-3 steps in the setting of alcohol intoxication CT chest stat rad: "Displaced sternal fracture with surrounding hyperdense hemorrhagic products. No well-defined hematoma." No evidence of pneumothorax, aortopathy, or pericardial pathology Initial troponin negative. ECG x2 without evidence of conduction/repolarization abnormalities If any evidence and troponin bump or ECG changes, Monitor on telemetry, pain control as below (2) Fall: Fall In the setting of appreciable alcohol intoxication history No evidence of loss of consciousness, secondary factors (based on history) that may have precipitated fall otherwise Imaging obtained in the ED did demonstrate: sternal fracture, L rib injuries, degenerative changes in neck w/o FX Topical pain control with lidocaine patches and heat pads Patient noted to be somnolent following morphine administration for pain in ED; also in setting of appreciable [EtOH], will hold off from as needed opiate analgesics for now but can re-add as they kaba off --> Initiate scheduled Tylenol 650 q6h beginning at 0600 following further IVF --> Will give one-time dose of Toradol to aid with diffuse pain now; cautious use in setting of sternal fracture w/ radiologic evidence of hemorrhage above (3) Alcohol intoxication: EtOH intoxication On arrival, patient noted to have serum alcohol level of approximately 240; she endorsed drinking over 10 beers today On a regular basis, patient reports drinking approximately 4 beers/day; will require further history when less somnolent tomorrow Patient denies any history of alcohol withdrawal; however, will initiate AWSS checks for now Scheduled thiamine, folate Alcohol counseling will be required, especially in the setting of this fall -No evidence of withdrawal so far (4) COPD (chronic obstructive pulmonary disease): COPD History noted in PCP notes. Appears well controlled. Albuterol as needed. (5) Anxiety and depression: Continue fluoxetine (6) Diabetes: T2DM A1c reported at 8% in December 2021 Hold home medications. Initiate sliding scale 1:30 with carb correction 1:15 Continue ACHS glucose checks (7) Hyperlipidemia: Noted. Continue rosuvastatin (8) Hypertension: Noted. Continue lisinopril and amlodipine (9) Hyponatremia: Hyponatremia Noted in the setting of alcohol use and dry appearance on exam, labs Suspect this is likely hypovolemic in nature in setting of heavy EtOH use today Status post 500 cc bolus in ED. Continue NSS at 100 cc an hour Resolved (10) Hypokalemia: Hypokalemia Replete with KCl 40mEq now. Scheduled twice daily, can discontinue when appropriate. Check Mg, replete prn (11) C7 cervical fracture: The patient complains of Neck pain as well as tingling and numbness in the territory of ulnar nerve including the fifth digit and the lateral side of the fourth digit morbid patient complains of having Cough induced tingling sensation originate from her neck and radiates to her lower extremities. She does not have any weakness. Imaging studies as detailed below showed evidence of C7 unstable fracture with superimposed hematoma likely epidural resulted in moderate central canal stenosis but with no mass-effect on spinal cord # CT of cervical spine reviewed: 1- Bilateral pedicular fracture of C7, unstable with extension to the C7 right facet #MRI of the C spine reviewed 1. Abnormal intracanalicular fluid throughout the cervical canal most pronounced at the left C2-C3 level, measuring 3 mm in thickness. This corresponds to the finding on cervical spine CT of February 21, 2022 and represents an intracanalicular hematoma, likely epidural. This hematoma, superimposed upon mild degenerative changes, results in moderate central canal stenosis throughout the cervical spine with mass effect upon the thecal sac. No cord signal abnormality. Spine surgical consultation is recommended. 2. Bilateral C7 pedicle fractures with associated mild anterolisthesis of C7 on T1. These fractures are unstable. 3. Acute mildly displaced fracture of the anterior aspect of the superior endplate of T1 with possible associated tear of the anterior longitudinal ligament. Extensive prevertebral edema, greatest at the C2-C4 levels. 4. Evidence for posterior ligamentous tear at the C6-C7 level with extensive posterior paraspinal soft tissue edema. Plan: Patient will be transferred to [facility] Decadron 4 mL every 6 hours Hard collar Complete bedrest N.p.o. Avoid antiplatelet anticoagulation Pain management The patient will be transferred to [facility] to be seen by trauma surgeon Total Time Total Time Spent Total Time Spent (In Minutes): 45 Discharge Plan Discharge Items Patient Disposition: Transfer Acute Care Hospital Reason For Visit: STERNAL FX, ETOH INTOX, HYPONATREMIA Discharge Diagnosis: Bilateral pedicular unstable C7 fracture with extension to Right C7 facet Epidural hematoma Alcohol intoxication Poorly controlled diabetes Condition on Discharge: Serious Health Concerns: Cervical fracture with epidural hematoma and a stable Activity: As commented below Activity Comment: Complete bedrest Lifting: None Exercise/Sports: None Non-emergency contact: Surgeon Call non-emergency contact if: you have any medication questions Follow-up/Referrals: Tamera Marques DO [Primary Care Provider] - Diet: Nothing by Mouth Addtl Attending Provider Instructions: The patient will be transferred to [facility] to be seen by trauma surgery Pending Studies at Discharge: No Stand-Alone Forms: My [facility] Skilled Items Patient informed of condition?: Yes DNR: No Discharge Level of Care: Other Communicable Disease: No Discharge Prognosis: Stable Lines: None and Peripheral IV Urinary Catheter: Yes Medications and DC Order Prescriptions: Continued (DME) OneTouch Verio test strips Strip See Dose Instructions .ROUTE .MEDSUPPLY Qty: 300 RF: 1 fluoxetine 20 mg tablet 20 mg PO BID Qty: 180 RF: 1 furosemide 20 mg tablet 20 mg PO DAILY PRN (Reason: edema) Qty: 90 RF: 1 glimepiride 4 mg tablet 8 mg PO DAILY Qty: 180 RF: 1 rosuvastatin 40 mg tablet 20 mg PO DAILY Qty: 90 RF: 3 Ozempic 0.25 mg or 0.5 mg(2 mg/1.5 mL) pen injector 0.5 mg SQ WEEKLY Qty: 1.5 RF: 5 albuterol sulfate 90 mcg/actuation HFA aerosol inhaler See Rx Instructions .ROUTE .COMPLEX Qty: 18 RF: 1 amlodipine 5 mg tablet 5 mg PO DAILY Qty: 90 RF: 1 lisinopril 40 mg tablet 40 mg PO DAILY Qty: 180 RF: 1 metformin 1,000 mg tablet 1,000 mg PO BID Qty: 180 RF: 1 latanoprost 0.005 % drops 1 drp ophthalmic (eye) DAILY Qty: 2.5 RF: 5 milk thistle 175 mg tablet 175 mg PO DAILY Qty: 60 RF: 0 ginkgo biloba leaf extract 60 mg tablet 60 mg PO DAILY Qty: 60 RF: 0 multivitamin with minerals [Hair,Skin and Nails] tablet 1 tab PO DAILY Qty: 180 RF: 0 (DME) lancets [OneTouch Delica Lancets] 33 gauge misc See Dose Instructions .ROUTE .MEDSUPPLY Qty: 300 RF: 5 betamethasone dipropionate 0.05 % cream 1 applic topical BID PRN (Reason: skin irritation) Qty: 45 RF: 0 Discharge Orders: Discharge Order (Routine); Ordered 02/22/22 Ordered By: Brown Todd/Other Patient Handouts: SCI Alcohol Use Admission Data Admit Date/Time: 02/22/22 01:14 Attending Provider: Brown Mcneal Admit Provider: Khanh Flor Primary Care Provider: Tamera Marques Other Providers: Olive Clinton ; Cyril Gillespie ; Henrik Singh ; Griffin Griffin ; Apolinar Salomon Jr ; Raghav Grace ; Fritz Richmond ; Marisa Jefferson ; Matthew Fish ; Haim Cannon Coding Level of Care Code D/C DAY MANAGEMENT >30 MINS Diagnoses Sternal fracture S22.20XA Fall W19.XXXA Encounter type: initial encounter Alcohol intoxication F10.920 Complication of substance-induced condition: uncomplicated COPD (chronic obstructive pulmonary disease) J44.9 Anxiety and depression F41.9; F32.9 Diabetes E11.9 Hyperlipidemia E78.5 Hypertension I10 Hyponatremia E87.1 Hypokalemia E87.6 C7 cervical fracture S12.600A
[2022-02-22] MEDS: MoRPHine SULFATE 4 MG/ML 1 ML CARP\\VIAL IV PRN ×2 (12:50→20:13)
--- NOTE | 2022-02-22 13:14 | Surgery Consultation ---
Date of Consultation February 22, 2022 Assessment & Plan (1) C7 cervical fracture: (2) Sternal fracture: 66-year-old woman status post fall with sternal fracture, and now newly diagnosed bilateral C7 facet fractures. For the sternal fracture, she would not require intervention. EKG is normal, troponins normal. Pain control. The C7 fracture is not unstable fracture, and will most likely need to be transferred to a tertiary care center for management. History of Present Illness Reason for Consultation: Fall with isolated sternal fracture Requesting Physician: Brown Mcneal MD Attending Physician: Brown Mcneal MD History of Present Illness 66-year-old woman was out last night and fell. She did not hit her head. She fell on her chest wall. She has fairly significant pain in her chest. Initial work-up in the ER with CT C-spine, chest, abdomen, pelvis was originally read as negative except for mildly displaced sternal fracture. Over read of CT scans in the morning demonstrated bilateral C7 facet fractures, denoting an unstable fracture. EKG x3 were normal, troponins were normal. She is currently ordered a C-spine MRI for further evaluation of the fracture and possible epidural hematoma. Allergies Allergy/AdvReac Type Severity Reaction Status Date / Time No Known Drug Allergies Allergy Verified 02/21/22 20:52 Home Medications Medication Instructions Recorded Confirmed Type ginkgo biloba leaf extract 60 mg 60 mg PO DAILY #60 tab 06/22/19 02/21/22 Rx tablet milk thistle 175 mg tablet 175 mg PO DAILY #60 tab 06/22/19 02/21/22 Rx multivitamin with minerals 1 tab PO DAILY #180 tab 06/22/19 02/21/22 Rx (Hair,Skin and Nails) lancets 33 gauge (One[facility] #300 ea 06/28/19 02/21/22 Rx Lancets) blood sugar diagnostic (OneTouch #300 ea 01/27/21 01/12/22 Rx Verio test strips) fluoxetine 20 mg tablet 20 mg PO BID #180 tab 09/01/21 02/21/22 Rx furosemide 20 mg tablet 20 mg PO DAILY PRN #90 tab 09/19/21 02/21/22 Rx glimepiride 4 mg tablet 8 mg PO DAILY #180 tab 11/10/21 02/21/22 Rx rosuvastatin 40 mg tablet 20 mg PO DAILY #90 tab 11/11/21 02/21/22 Rx semaglutide (Ozempic) 0.5 mg SQ WEEKLY #1.5 ml 11/18/21 02/21/22 Rx albuterol sulfate 90 mcg/actuation See Rx Instructions .ROUTE 12/24/21 02/21/22 Rx aerosol inhaler .COMPLEX #18 g amlodipine 5 mg tablet 5 mg PO DAILY #90 tab 12/31/21 02/21/22 Rx betamethasone dipropionate 0.05 % 1 applic TOPICAL BID PRN #45 g 01/12/22 02/21/22 Rx topical cream lisinopril 40 mg tablet 40 mg PO DAILY #180 tab 01/12/22 02/21/22 Rx metformin 1,000 mg tablet 1,000 mg PO BID #180 tab 01/12/22 02/21/22 Rx latanoprost 0.005 % eye drops 1 drp OPHTHALMIC (EYE) DAILY #2.5 01/15/22 02/21/22 Rx ml Patient History Medical History Anxiety and depression Arthritis Asthma COPD (chronic obstructive pulmonary disease) Diabetes Diverticulosis Glaucoma Hyperlipidemia Hypertension Surgical History History of appendectomy History of oophorectomy, unilateral unilateral right side Family History Mother Diabetes Kidney disease Kidney stones Hypertension Gallbladder disease Sister Seizures Denies family history of Ovarian cancer Prostate cancer Myocardial infarction Breast cancer Cancer Social History Smoking Status: Never smoker Second Hand Exposure: No; Hx Alcohol Use: Yes Alcohol type: beer Alcohol Intake Frequency: 4 or More x per/Week Alcohol Intake Frequency Comment: 2 beers per day Hx Substance Use: No Preferred Language: Macanese Communication Ability: Effective Visual Impairment: Limited Hearing Ability: Normal [employer] Required: No Beliefs That Will Affect Care: None marital status: Current Living Situation: Spouse Current Living Situation Comment: lives w/ spouse, daughter, 2 grandchildren, and son in law current occupational status: retired How many Children do You have: 2 Feels Safe at Home: Yes Childhood Exposure to Second-Hand Smoke: Yes caffeine: Yes during the past year weight has: remained stable Dental Care, Regularly: Yes Physical Activity Frequency: 1-2 Times per Week Seatbelt Use: always Sunscreen Use: Yes Assistive Devices: None Review of Systems Review of Systems: All systems reviewed & are unremarkable except as noted in HPI & below Physical Exam Constitutional: WD/WN, vitals as above + morbidly obese Eyes: PERRL, conjunctivae normal, anicteric sclerae EOM intact bilaterally ENMT: external ear and nose normal, oropharynx normal Neck: trachea midline, no thyromegaly Cervical collar in place Respiratory: normal respiratory effort; no respiratory distress and no labored breathing Cardiovascular: Rate/Rhythm: regular rate and regular rhythm Chest (Breasts): Additional Comments: Midsternal chest tenderness to palpation Gastrointestinal (Abdomen): Inspection/Auscultation: abdomen normal to inspection; abdomen not distended Percussion/Palpation: abdomen soft; abdomen nontender and no guarding Musculoskeletal: Extremities: no cyanosis and no clubbing Skin: no rashes, warm and dry Psychiatric: A+Ox3, euthymic affect Results & Data ([facility]) Vital Signs (Past 12 Hours) Vital Signs Temp Pulse Pulse Pulse Resp BP BP 02/22/22 13:03 36.7 C 80 20 149/77 H 154/92 H 02/22/22 13:02 79 02/22/22 11:44 36.7 C 80 20 149/77 H 02/22/22 07:18 36.7 C 84 20 152/83 H 02/22/22 02:38 79 02/22/22 02:26 36.3 C L 74 16 154/92 H Pulse Ox 02/22/22 13:03 90 02/22/22 13:02 02/22/22 11:44 90 02/22/22 07:18 96 02/22/22 02:38 02/22/22 02:26 94 Laboratory Results 02/22/22 02/22/22 02/22/22 Range/Units 11:36 08:09 07:42 WBC (4.8-10.8) K/uL RBC (4.2-5.4) M/uL Hgb (12.0-16.0) g/dL Hct (37-47) % MCV (80-100) fL MCH (25-34) pg MCHC (32-36) g/dL RDW Std Deviation (36.4-46.3) fL RDW Coeff of Suraj (11.5-14.5) % Plt Count (130-400) K/uL MPV (7.4-10.4) fL Immature Gran % (Auto) % Neut % (Auto) % Lymph % (Auto) % Ada % (Auto) % Eos % (Auto) % Baso % (Auto) % Neut # (Auto) (1.4-6.5) K/uL Lymph # (Auto) (1.2-3.4) K/uL Ada # (Auto) (0.11-0.59) K/uL Eos # (Auto) (0-0.5) K/uL Baso # (Auto) (0-0.2) K/uL Immature Gran # (Auto) (0.00-0.02) K/uL PT (9.0-12.0) Seconds INR (0.9-1.1) APTT (21.0-31.0) Seconds PTT Ratio Sodium (136-145) mmol/L Potassium (3.5-5.1) mmol/L Chloride (98-107) mmol/L Carbon Dioxide (21-32) mmol/L Anion Gap (3-11) BUN (6-23) mg/dl Creatinine (0.6-1.2) mg/dl Est Cr Clr Drug Dosing Est GFR ( Amer) ml/min Est GFR (Non-Af Amer) ml/min BUN/Creatinine Ratio (10-20) Glucose (70-99(Fasting)) mg/dl POC Glucose 146 H 133 H (70-99) mg/dl Calcium (8.5-10.1) mg/dl Magnesium (1.7-2.4) mg/dl Total Bilirubin (0.2-1.0) mg/dl AST (13-39) U/L ALT (7-52) U/L Alkaline Phosphatase (34-104) U/L Troponin I High Sens 9.3 (0-14) pg/ml Total Protein (6.0-8.3) gm/dl Albumin (3.4-5.0) gm/dl Globulin (2.5-4.0) gm/dl Albumin/Globulin Ratio (0.9-2) TSH (0.300-4.500) uIu/ml Free T4 (0.61-1.60) ng/dl Urine Color Urine Appearance (Clear) Urine pH (4.5-7.5) Ur Specific Mchenry (1.000-1.030) Urine Protein (Negative) Urine Glucose (UA) (Negative) Urine Ketones (Negative) Urine Blood (Negative) Urine Nitrite (Negative) Urine Bilirubin (Negative) Urine Urobilinogen (Negative) Ur Leukocyte Esterase (Negative) Urine WBC (Auto) (0-5) /hpf Urine RBC (Auto) (0-4) /hpf U Hyaline Cast (Auto) (0-5) /lpf U Epithel Cells (Auto) (0-5) /lpf Urine Bacteria (Auto) (Negative) Ethyl Alcohol mg/dL (<10.0) mg/dl SARS-CoV-2, RNA, NAAT (NEGATIVE) 02/22/22 02/22/22 02/22/22 Range/Units 03:06 03:06 03:06 WBC 13.44 H (4.8-10.8) K/uL RBC 4.13 L (4.2-5.4) M/uL Hgb 12.4 (12.0-16.0) g/dL Hct 36.8 L (37-47) % MCV 89.1 (80-100) fL MCH 30.0 (25-34) pg MCHC 33.7 (32-36) g/dL RDW Std Deviation 48.2 H (36.4-46.3) fL RDW Coeff of Suraj 14.7 H (11.5-14.5) % Plt Count 289 (130-400) K/uL MPV 9.4 (7.4-10.4) fL Immature Gran % (Auto) 0.3 % Neut % (Auto) 83.5 % Lymph % (Auto) 11.0 % Ada % (Auto) 5.1 % Eos % (Auto) 0.0 % Baso % (Auto) 0.1 % Neut # (Auto) 11.23 H (1.4-6.5) K/uL Lymph # (Auto) 1.48 (1.2-3.4) K/uL Ada # (Auto) 0.68 H (0.11-0.59) K/uL Eos # (Auto) 0.00 (0-0.5) K/uL Baso # (Auto) 0.01 (0-0.2) K/uL Immature Gran # (Auto) 0.04 H (0.00-0.02) K/uL PT (9.0-12.0) Seconds INR (0.9-1.1) APTT (21.0-31.0) Seconds PTT Ratio Sodium 131 L (136-145) mmol/L Potassium 3.8 (3.5-5.1) mmol/L Chloride 91 L (98-107) mmol/L Carbon Dioxide 27 (21-32) mmol/L Anion Gap 13 H (3-11) BUN 5 L (6-23) mg/dl Creatinine 0.45 L (0.6-1.2) mg/dl Est Cr Clr Drug Dosing 138.6 Est GFR ( Amer) 119.3 ml/min Est GFR (Non-Af Amer) 103.0 ml/min BUN/Creatinine Ratio 11.1 (10-20) Glucose 173 H (70-99(Fasting)) mg/dl POC Glucose (70-99) mg/dl Calcium 8.0 L (8.5-10.1) mg/dl Magnesium 1.5 L (1.7-2.4) mg/dl Total Bilirubin 0.7 (0.2-1.0) mg/dl AST 75 H (13-39) U/L ALT 41 (7-52) U/L Alkaline Phosphatase 58 (34-104) U/L Troponin I High Sens 7.6 (0-14) pg/ml Total Protein 7.0 (6.0-8.3) gm/dl Albumin 4.4 (3.4-5.0) gm/dl Globulin 2.6 (2.5-4.0) gm/dl Albumin/Globulin Ratio 1.7 (0.9-2) TSH (0.300-4.500) uIu/ml Free T4 (0.61-1.60) ng/dl Urine Color Urine Appearance (Clear) Urine pH (4.5-7.5) Ur Specific Mchenry (1.000-1.030) Urine Protein (Negative) Urine Glucose (UA) (Negative) Urine Ketones (Negative) Urine Blood (Negative) Urine Nitrite (Negative) Urine Bilirubin (Negative) Urine Urobilinogen (Negative) Ur Leukocyte Esterase (Negative) Urine WBC (Auto) (0-5) /hpf Urine RBC (Auto) (0-4) /hpf U Hyaline Cast (Auto) (0-5) /lpf U Epithel Cells (Auto) (0-5) /lpf Urine Bacteria (Auto) (Negative) Ethyl Alcohol mg/dL (<10.0) mg/dl SARS-CoV-2, RNA, NAAT (NEGATIVE) 02/22/22 02/21/22 02/21/22 Range/Units 01:39 21:10 20:42 WBC (4.8-10.8) K/uL RBC (4.2-5.4) M/uL Hgb (12.0-16.0) g/dL Hct (37-47) % MCV (80-100) fL MCH (25-34) pg MCHC (32-36) g/dL RDW Std Deviation (36.4-46.3) fL RDW Coeff of Suraj (11.5-14.5) % Plt Count (130-400) K/uL MPV (7.4-10.4) fL Immature Gran % (Auto) % Neut % (Auto) % Lymph % (Auto) % Ada % (Auto) % Eos % (Auto) % Baso % (Auto) % Neut # (Auto) (1.4-6.5) K/uL Lymph # (Auto) (1.2-3.4) K/uL Ada # (Auto) (0.11-0.59) K/uL Eos # (Auto) (0-0.5) K/uL Baso # (Auto) (0-0.2) K/uL Immature Gran # (Auto) (0.00-0.02) K/uL PT (9.0-12.0) Seconds INR (0.9-1.1) APTT (21.0-31.0) Seconds PTT Ratio Sodium (136-145) mmol/L Potassium (3.5-5.1) mmol/L Chloride (98-107) mmol/L Carbon Dioxide (21-32) mmol/L Anion Gap (3-11) BUN (6-23) mg/dl Creatinine (0.6-1.2) mg/dl Est Cr Clr Drug Dosing Est GFR ( Amer) ml/min Est GFR (Non-Af Amer) ml/min BUN/Creatinine Ratio (10-20) Glucose (70-99(Fasting)) mg/dl POC Glucose 94 (70-99) mg/dl Calcium (8.5-10.1) mg/dl Magnesium (1.7-2.4) mg/dl Total Bilirubin (0.2-1.0) mg/dl AST (13-39) U/L ALT (7-52) U/L Alkaline Phosphatase (34-104) U/L Troponin I High Sens (0-14) pg/ml Total Protein (6.0-8.3) gm/dl Albumin (3.4-5.0) gm/dl Globulin (2.5-4.0) gm/dl Albumin/Globulin Ratio (0.9-2) TSH (0.300-4.500) uIu/ml Free T4 (0.61-1.60) ng/dl Urine Color Yellow Urine Appearance Clear (Clear) Urine pH 5.0 (4.5-7.5) Ur Specific Mchenry 1.032 H (1.000-1.030) Urine Protein Negative (Negative) Urine Glucose (UA) Negative (Negative) Urine Ketones 1+ H (Negative) Urine Blood 2+ H (Negative) Urine Nitrite Negative (Negative) Urine Bilirubin Negative (Negative) Urine Urobilinogen Negative (Negative) Ur Leukocyte Esterase Negative (Negative) Urine WBC (Auto) 1-5 (0-5) /hpf Urine RBC (Auto) 0-4 (0-4) /hpf U Hyaline Cast (Auto) 0 (0-5) /lpf U Epithel Cells (Auto) 0-5 (0-5) /lpf Urine Bacteria (Auto) Negative (Negative) Ethyl Alcohol mg/dL (<10.0) mg/dl SARS-CoV-2, RNA, NAAT NEGATIVE (NEGATIVE) 02/21/22 02/21/22 02/21/22 Range/Units 20:37 20:25 20:25 WBC (4.8-10.8) K/uL RBC (4.2-5.4) M/uL Hgb (12.0-16.0) g/dL Hct (37-47) % MCV (80-100) fL MCH (25-34) pg MCHC (32-36) g/dL RDW Std Deviation (36.4-46.3) fL RDW Coeff of Suraj (11.5-14.5) % Plt Count (130-400) K/uL MPV (7.4-10.4) fL Immature Gran % (Auto) % Neut % (Auto) % Lymph % (Auto) % Ada % (Auto) % Eos % (Auto) % Baso % (Auto) % Neut # (Auto) (1.4-6.5) K/uL Lymph # (Auto) (1.2-3.4) K/uL Ada # (Auto) (0.11-0.59) K/uL Eos # (Auto) (0-0.5) K/uL Baso # (Auto) (0-0.2) K/uL Immature Gran # (Auto) (0.00-0.02) K/uL PT (9.0-12.0) Seconds INR (0.9-1.1) APTT (21.0-31.0) Seconds PTT Ratio Sodium (136-145) mmol/L Potassium (3.5-5.1) mmol/L Chloride (98-107) mmol/L Carbon Dioxide (21-32) mmol/L Anion Gap (3-11) BUN (6-23) mg/dl Creatinine (0.6-1.2) mg/dl Est Cr Clr Drug Dosing Est GFR ( Amer) ml/min Est GFR (Non-Af Amer) ml/min BUN/Creatinine Ratio (10-20) Glucose (70-99(Fasting)) mg/dl POC Glucose (70-99) mg/dl Calcium (8.5-10.1) mg/dl Magnesium (1.7-2.4) mg/dl Total Bilirubin (0.2-1.0) mg/dl AST (13-39) U/L ALT (7-52) U/L Alkaline Phosphatase (34-104) U/L Troponin I High Sens 7.9 (0-14) pg/ml Total Protein (6.0-8.3) gm/dl Albumin (3.4-5.0) gm/dl Globulin (2.5-4.0) gm/dl Albumin/Globulin Ratio (0.9-2) TSH 4.781 H (0.300-4.500) uIu/ml Free T4 1.14 (0.61-1.60) ng/dl Urine Color Urine Appearance (Clear) Urine pH (4.5-7.5) Ur Specific Mchenry (1.000-1.030) Urine Protein (Negative) Urine Glucose (UA) (Negative) Urine Ketones (Negative) Urine Blood (Negative) Urine Nitrite (Negative) Urine Bilirubin (Negative) Urine Urobilinogen (Negative) Ur Leukocyte Esterase (Negative) Urine WBC (Auto) (0-5) /hpf Urine RBC (Auto) (0-4) /hpf U Hyaline Cast (Auto) (0-5) /lpf U Epithel Cells (Auto) (0-5) /lpf Urine Bacteria (Auto) (Negative) Ethyl Alcohol mg/dL 232.2 H (<10.0) mg/dl SARS-CoV-2, RNA, NAAT (NEGATIVE) 02/21/22 02/21/22 02/21/22 Range/Units 20:25 20:25 20:25 WBC 14.49 H (4.8-10.8) K/uL RBC 4.35 (4.2-5.4) M/uL Hgb 13.3 (12.0-16.0) g/dL Hct 38.9 (37-47) % MCV 89.4 (80-100) fL MCH 30.6 (25-34) pg MCHC 34.2 (32-36) g/dL RDW Std Deviation 48.9 H (36.4-46.3) fL RDW Coeff of Suraj 14.9 H (11.5-14.5) % Plt Count 314 (130-400) K/uL MPV 9.3 (7.4-10.4) fL Immature Gran % (Auto) 0.5 % Neut % (Auto) 66.6 % Lymph % (Auto) 26.8 % Ada % (Auto) 4.8 % Eos % (Auto) 1.2 % Baso % (Auto) 0.1 % Neut # (Auto) 9.63 H (1.4-6.5) K/uL Lymph # (Auto) 3.89 H (1.2-3.4) K/uL Ada # (Auto) 0.70 H (0.11-0.59) K/uL Eos # (Auto) 0.18 (0-0.5) K/uL Baso # (Auto) 0.02 (0-0.2) K/uL Immature Gran # (Auto) 0.07 H (0.00-0.02) K/uL PT 10.6 (9.0-12.0) Seconds INR 1.0 (0.9-1.1) APTT 22.8 (21.0-31.0) Seconds PTT Ratio 0.8 Sodium 129 L (136-145) mmol/L Potassium 3.2 L (3.5-5.1) mmol/L Chloride 90 L (98-107) mmol/L Carbon Dioxide 25 (21-32) mmol/L Anion Gap 14 H (3-11) BUN 6 (6-23) mg/dl Creatinine 0.46 L (0.6-1.2) mg/dl Est Cr Clr Drug Dosing Not Reportable Est GFR ( Amer) 118.5 ml/min Est GFR (Non-Af Amer) 102.2 ml/min BUN/Creatinine Ratio 13.0 (10-20) Glucose 79 (70-99(Fasting)) mg/dl POC Glucose (70-99) mg/dl Calcium 8.9 (8.5-10.1) mg/dl Magnesium (1.7-2.4) mg/dl Total Bilirubin 0.5 (0.2-1.0) mg/dl AST 45 H (13-39) U/L ALT 34 (7-52) U/L Alkaline Phosphatase 63 (34-104) U/L Troponin I High Sens (0-14) pg/ml Total Protein 7.7 (6.0-8.3) gm/dl Albumin 4.8 (3.4-5.0) gm/dl Globulin 2.9 (2.5-4.0) gm/dl Albumin/Globulin Ratio 1.7 (0.9-2) TSH (0.300-4.500) uIu/ml Free T4 (0.61-1.60) ng/dl Urine Color Urine Appearance (Clear) Urine pH (4.5-7.5) Ur Specific Mchenry (1.000-1.030) Urine Protein (Negative) Urine Glucose (UA) (Negative) Urine Ketones (Negative) Urine Blood (Negative) Urine Nitrite (Negative) Urine Bilirubin (Negative) Urine Urobilinogen (Negative) Ur Leukocyte Esterase (Negative) Urine WBC (Auto) (0-5) /hpf Urine RBC (Auto) (0-4) /hpf U Hyaline Cast (Auto) (0-5) /lpf U Epithel Cells (Auto) (0-5) /lpf Urine Bacteria (Auto) (Negative) Ethyl Alcohol mg/dL (<10.0) mg/dl SARS-CoV-2, RNA, NAAT (NEGATIVE) (1) Sternal fracture Encounter type: initial encounter Fracture type: closed Sternal location: unspecified Qualified Code(s): S22.20XA - Unspecified fracture of sternum, initial encounter for closed fracture
[2022-02-23] MEDS ORDERED: FOLIC ACID 1 MG in SYRINGE 9.8 ML IV SCH (09:00)
== END 2022-02-22 20:21 | disposition short-term general hospital (02) | DRG 551 ==
LOC: ED 20:12 → SUATTDRO 02-22 01:14 → 2N 02-22 01:14